=== PATIENT | female | born 1985 | race Caucasian/White ===

== ENCOUNTER 2019-04-12 02:58 | Emergency (ER) | payer SELFPAY ==
[~2019-04-12] VITALS: Ht 154.9 cm; Wt 61.7 kg
[~2019-04-12 02:58] MED LIST: FERR-212 PO; PREN1SGL44 PO
[2019-04-12 03:04] VITALS: BP 123/71
--- NOTE | 2019-04-12 03:15 | NUR ---
PT AMBULATED TO BED #3
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
--- NOTE | 2019-04-12 03:39 | NUR ---
REPORT PROVIDED TO ARNAV SANCHES, PER ASSORTMENT PLANNER OFFICER WILL BE DISPATCHED TO [facility].
--- NOTE | 2019-04-12 03:50 | NUR ---
OFFICER LENO FROM [facility] AT BEDSIDE.
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
--- NOTE | 2019-04-12 04:51 | NUR ---
DR. PUGA BEDSIDE EVALUATING PT
[2019-04-12] MEDS ORDERED: KETOROLAC 60 MG/2 ML VIAL IM ONE (04:55)
--- NOTE | 2019-04-12 05:16 | NUR ---
[place] [employer] IS AT BEDSIDE.
--- NOTE | 2019-04-12 05:40 | NUR ---
Patient discharged with v/s stable. Patient acting appropriatly, states she is ready to go home and feels safe to go home. Patient states pain has decreased to 3/10. Written and verbal after care instructions given and explained. Patient alert, oriented and verbalized understanding of instructions. Ambulatory with steady gait. All questions addressed prior to discharge. ID band removed. Patient advised to follow up with PMD. Rx of Motrin given. Patient educated on indication of medication including possible reaction and side effects. Opportunity to ask questions provided and answered.
[2019-04-12 05:42] VITALS: BP 118/65
== END 2019-04-12 05:40 | disposition home or self-care (01) ==
LOC: MED 02:58
DX: H92.01 Otalgia, right ear (principal); M79.644 Pain in right finger(s); Y04.0XXA Assault by unarmed brawl or fight, initial encounter; Y93.89 Activity, other specified; Y92.89 Other specified places as the place of occurrence of the external cause; Y99.8 Other external cause status; Z79.899 Other long term (current) drug therapy
CPT/HCPCS: 96372; 99283; J1885

== ENCOUNTER 2019-08-11 14:35 | Emergency (ER) | payer SELFPAY ==
[~2019-08-11] VITALS: Ht 154.9 cm; Wt 60.8 kg
[2019-08-11 14:47] VITALS: BP 133/92
--- NOTE | 2019-08-11 14:51 | NUR ---
PT AMBULATED TO LOBBY AT THIS TIME, VSS.
--- NOTE | 2019-08-11 15:19 | NUR ---
PT AMBULATED TO CHAIR C.
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
[2019-08-11] MEDS ORDERED: ACETAMINOPHEN EXTRA STRENGTH 500 MG TAB PO ONE (16:25)
[2019-08-11 16:32] VITALS: BP 133/92
== END 2019-08-11 16:32 | disposition home or self-care (01) ==
LOC: MED 14:35
DX: S60.222A Contusion of left hand, initial encounter (principal); S60.221A Contusion of right hand, initial encounter; M25.562 Pain in left knee; W18.09XA Striking against other object with subsequent fall, initial encounter; Y93.01 Activity, walking, marching and hiking; Y92.480 Sidewalk as the place of occurrence of the external cause; Y99.8 Other external cause status
CPT/HCPCS: 73562; 99283

== ENCOUNTER 2021-04-21 22:41 | Emergency (ER) | payer MEDICAID ==
[~2021-04-21] VITALS: Ht 157.5 cm; Wt 61.2 kg
[2021-04-21 22:53] VITALS: BP 127/93
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
--- NOTE | 2021-04-21 22:57 | NUR ---
PT TAKEN TO BED 4
[2021-04-21 23:27] LABS: BASOPHILS # (AUTO) 0.1 K/uL (0.00-0.22); BASOPHILS % (AUTO) 0.8 % (0.0-2.0); EOSINOPHILS # (AUTO) 0.1 K/uL (0-0.4); EOSINOPHILS % (AUTO) 0.7 % (0.0-4.0); HEMATOCRIT 38.6 % (36-48); HEMOGLOBIN 12.9 g/dL (12.0-16.0); LYMPHOCYTES # (AUTO) 3.4 K/uL (2.5-16.5); LYMPHOCYTES % (AUTO) 19.2 % (20.5-51.1); MEAN CORPUSCULAR HEMOGLOBIN 28 pg (27-31); MEAN CORPUSCULAR HGB CONC 33 g/dL (33-37); MEAN CORPUSCULAR VOLUME 84.4 fL (80-94); MONOCYTES # (AUTO) 0.8 K/uL (0.8-1.0); MONOCYTES % (AUTO) 4.6 % (1.7-9.3); NEUTROPHILS # (AUTO) 13.4 K/uL (1.8-7.7); NEUTROPHILS % (AUTO) 74.7 % (42.2-75.2); PLATELET COUNT (AUTO) 260 K/uL (140-450); RED BLOOD CELL COUNT(AUTO) 4.58 MIL/uL (4.20-5.40); RED CELL DISTRIBUTION WIDTH 14.4 % (11.6-13.7); WHITE BLOOD COUNT (AUTO) 17.9 K/uL (4.8-10.8)
[2021-04-21 23:54] LABS: ANION GAP 13.2 (8-16); CARBON DIOXIDE 25.6 mmol/L (21-32); CREATININE 0.8 mg/dL (0.6-1.3); POTASSIUM 3.8 mmol/L (3.5-5.1); TOTAL BILIRUBIN 0.5 mg/dL (0.0-1.0)
[2021-04-21 23:55] LABS: ALBUMIN 3.7 g/dL (3.4-5.0)
--- NOTE | 2021-04-22 00:02 | NUR ---
Female Piano Regulator accompanied female patient for Pelvic Exam performed by MAINOR Rutherford. Patient tolerated pelvic exam well.
[2021-04-22 01:39] LABS: PROTHROMBIN TIME 9.6 secs (10.8-13.4)
[2021-04-22 06:13] VITALS: BP 127/93
--- NOTE | 2021-04-22 06:13 | NUR ---
Patient discharged with v/s stable. Written and verbal after care instructions given and explained. Patient verbalized understanding. Ambulatory with steady gait. All questions addressed prior to discharge. Advised to follow up with PMD.
== END 2021-04-22 06:13 | disposition home or self-care (01) ==
LOC: MED 22:41
DX: D25.9 Leiomyoma of uterus, unspecified (principal); Z79.899 Other long term (current) drug therapy
CPT/HCPCS: 36415; 76830; 80053; 81025; 84702; 85025; 85610; 86886; 86900; 86901; 99284